=== PATIENT | male | born 1990 | race Caucasian/White ===

== ENCOUNTER 2018-11-10 10:16 | Day surgery (SDC) | payer OTHER ==
[~2018-11-10 10:16] MED LIST: ceFAZolin 2 GM in SODIUM CHLORIDE 0.9% 100ML 100 ML IV SCH
[2018-11-10] MEDS ORDERED: LACTATED RINGERS 1,000 ML IV ONE ×2 (10:41→12:40)
[2018-11-10] MEDS ORDERED: BUPIVACAINE 0.25% PF 30 ML VIAL ONE (10:43)
--- NOTE | 2018-11-10 10:43 | ANESTHESIA ---
Pre-Anesthesia VS, & Labs - Diagnosis Right 5th metacarpal fx - Procedure ORIF right metacarpal Vital Signs: Temp Pulse Resp BP Pulse Ox 36.0 C L 51 L 14 127/78 97 11/10/18 10:22 11/10/18 10:22 11/10/18 10:22 11/10/18 10:22 11/10/18 10:22 Height 5 ft 6 in Weight (kg) 73.6 kg - NPO >8 hours - Lab Results Lab results reviewed: No Home Medications and Allergies Home Medications: Ambulatory Orders No Known Home Medications 11/07/18 Active Medications Cefazolin Sodium 2 gm/ Sodium (Chloride) 100 mls @ 200 mls/hr IV ONCE JUAN Stop: 11/10/18 12:00 No Known Home Medications 11/07/18 Allergies/Adverse Reactions: Allergies Allergy/AdvReac Type Severity Reaction Status Date / Time No Known Drug Allergies Allergy Verified 11/07/18 15:24 Anes History & Medical History - Anesthetic History Anesthesia Complications: reports: No previous complications Family history of Anesthesia Complications: Denies Family history of Malignant Hyperthermia: Denies - Medical History Pulmonary: reports: None Gastrointestinal: reports: None Urinary: reports: None Neuro: reports: None Musculoskeletal: reports: Other Endocrine/Autoimmune: reports: None Blood Disorders: reports: None Skin: reports: None Smoking Status: Former smoker Psychosocial: reports: No issues indicated - Surgical History Eyes Ears Nose Throat (EENT): Tonsil/Adenoidectomy Exam General: Alert Dental: TMJ Mouth Opening: Greater than 4 Fingerbreadths Neck Mobility: Normal Mallampati classification: I Thyromental Distance: greater than 6 cm Respiratory: Lungs clear Cardiovascular: Regular rate Neurological: Normal speech Mental/Cognitive Status: Alert/Oriented X3 Cognitive Status: Within normal limits Plan Anesthesia Type: General Consent for Procedure(s) Verified and Reviewed: Yes Code Status: Attempt Resuscitation ASA classification: 1-Healthy patient Is this case an emergency?: No
[2018-11-10] MEDS ORDERED: oxyCODONE 5 MG TABLET PO PRN (12:29)
[2018-11-10] MEDS ORDERED: ONDANSETRON 4 MG/2 ML VIAL IVP PRN (12:29)
--- NOTE | 2018-11-10 12:35 | OPERATIVE REPORT ---
Operative Report - General Procedure Date: 11/10/18 Planned Procedure: Right fifth metacarpal base fracture closed reduction and percutaneous pinning Pre-Op Diagnosis: Right Fifth metacarpal base fracture dislocation Procedure Performed: Right fifth metacarpal base fracture closed reduction and percutaneous pinning Post Op Diagnosis: Right fifth metacarpal base fracture dislocation - Procedure Note Primary Surgeon: JOVANY ROSALES Secondary Surgeon: LAUREEN DELGADILLO Anesthesia Technique: General LMA Estimated Blood Loss (mL): 5 - Other Other Information/Narrative: Tourniquet Time: 0 minutes at 250mmHg. Specimen(s) Information: None Complication(s): None Condition: Stable to recovery Indications for Surgery: The patient is a 28-year-old right hand dominant male who sustained injury to his right hand on 06 Nov 2018 when he close his hand in a car door. He reported immediate pain and swelling which he treated initially with Motrin and icing. He presented for evaluation at the care clinic on 07 November, where radiographs demonstrated a displaced intra-articular fracture dislocation of the base of the fifth metacarpal. He was referred to orthopedics for further evaluation and management. Xrays demonstrated a displaced intra-articular fracture of the base of the fifth metacarpal, with dorsal and ulnar subluxation of the distal shaft fragment. The patient was counseled on treatment options to attmpted closed reduction and casting versus closed reduction and percutaneous pinning vs open reduction and internal fixation. Risks of surgery were discussed to include bleeding, infection, postoperative stiffness, implant complications, pin tract infections, loss of reduction, need for further procedures procedures, damage to nerves, vessels, tendons, ligaments, bone and cartilage and anesthesia complications to include medication side effects and allergic reactions and even . After a long discussion, he wished to proceed. Findings: Fifth metacarpal base fracture Descriptions of Procedure: The patient was met in the Preoperative Holding Area, at which time preoperative paperwork was confirmed. The right hand was signed. The patient was then brought to Main Operating Room, placed supine on the Operating Room table, at which time pre procedure timeout was conducted to confirm correct patient, correct extremity and correct procedure and also to confirm presence and sterility of all required equipment and to confirm that antibiotics were being administered in the form of 2g of intravenous Ancef. After this was confirmed, general anesthesia was induced. The operative extremity was then prepped and draped over a hand table in the normal sterile fashion after a well-padded tourniquet was placed on the proximal arm but not inflated. A final timeout was conducted to confirm the correct patient, correct extremity and correct procedure and to confirm that antibiotics had been administered within 30 minutes of incision time. A mini C arm was used to visualize the fracture fragments, and the fracture was reduced by applying longitudinal traction followed by a volarly and radially directed force to the shaft of the fifth metacarpal. Reduction was confirmed using fluoroscopy and then a 0.062 inches K wire was driven retrograde from the fifth metacarpal shaft into the hamate. Once this K wire had been placed, reduction was confirmed fluoroscopically, and then a second K wire was placed transversely through the fifth metacarpal shaft into the fourth metacarpal shaft. Again wire placement and reduction was confirmed. Satisfied with the construct, the wires were cut and buried under the skin. Final images were ta rafiq. 10 mL of half percent plain Marcaine were injected around the pins and fracture site. The wound was dressed with xeroform, plain 4x4 gauze, followed by webril. A plaster wrist splint was applied in to the forearm and hand to the level of the MCP joints, followed by a gently compressive Brendon bandage. The patient was then awakened from general anesthesia without complication, brought to the Post Anesthesia Care for further recovery. Postoperative Plan: 1. The patient will be discharged from the Same Day Surgery Unit when discharge criteria are met. 2. The patient will remain in a splint until follow-up in approximately 2 weeks, where he will be converted to a short arm cast. Expected total pin time 6 weeks, followed by pin removal in the OR. 3. Expect total immobilization 6 to 8 weeks, followed by rehabilitation
[2018-11-10] MEDS ORDERED: HYDROmorphone 0.5 MG/0.5 ML SYRINGE ONE (12:50)
[2018-11-10] MEDS ORDERED: oxyCODONE 5 MG TABLET ONE (13:16)
[2018-11-10 13:48] VITALS: BP 114/73
== END 2018-11-10 10:17 | disposition home or self-care (01) ==
LOC: SDS 10:16
PROVIDERS: ATTEND Orthopaedic Surgery
PROC: 0PSP34Z Reposition Right Metacarpal with Internal Fixation Device, Percutaneous Approach (ICD-10-PCS; principal; 2018-11-10 11:30)
DX: S62.316A Displaced fracture of base of fifth metacarpal bone, right hand, initial encounter for closed fracture (principal); F17.290 Nicotine dependence, other tobacco product, uncomplicated
CPT/HCPCS: 26608; A9270; C1713; J1170; J7120

== ENCOUNTER 2018-12-25 11:37 | Day surgery (SDC) | payer OTHER ==
[2018-12-25] MEDS ORDERED: LACTATED RINGERS 1,000 ML IV ONE (11:51)
[2018-12-25] MEDS ORDERED: CEFAZOLIN SODIUM IN 0.9 % NACL 2 GM/100 ML BAG IV ONE (12:10)
--- NOTE | 2018-12-25 12:21 | ANESTHESIA ---
Pre-Anesthesia VS, & Labs - Diagnosis right hand metacarpal fracture - Procedure right hand hardware removal Vital Signs: Temp Pulse Resp BP Pulse Ox 36 C L 59 L 12 110/76 97 12/25/18 11:52 12/25/18 11:52 12/25/18 11:52 12/25/18 11:52 12/25/18 11:52 Height 5 ft 6 in Weight (kg) 70.7 kg - NPO >8 hours Home Medications and Allergies Home Medications: Ambulatory Orders Ibuprofen [Motrin] 600 mg PO Q6H PRN 12/11/18 Ibuprofen [Motrin] 600 mg PO Q6H PRN 12/11/18 Allergies/Adverse Reactions: Allergies Allergy/AdvReac Type Severity Reaction Status Date / Time No Known Drug Allergies Allergy Verified 12/11/18 12:00 Anes History & Medical History - Anesthetic History Anesthesia Complications: reports: No previous complications - Medical History Cardiovascular: reports: None Pulmonary: reports: None Gastrointestinal: reports: None Urinary: reports: None Neuro: reports: None Musculoskeletal: reports: Other Endocrine/Autoimmune: reports: None Blood Disorders: reports: None Skin: reports: None Smoking Status: Former smoker - Surgical History Eyes Ears Nose Throat (EENT): Tonsil/Adenoidectomy Orthopedic: Other Exam General: Alert Dental: WNL Mouth Opening: Greater than 4 Fingerbreadths Neck Mobility: Normal Mallampati classification: II Respiratory: Lungs clear Cardiovascular: Regular rate, Normal S1, Normal S2 Mental/Cognitive Status: Alert/Oriented X3 Plan Anesthesia Type: General, MAC Consent for Procedure(s) Verified and Reviewed: Yes Code Status: Attempt Resuscitation ASA classification: 1-Healthy patient Is this case an emergency?: No
[2018-12-25] MEDS ORDERED: BUPIVACAINE 0.25% PF 30 ML VIAL ONE (12:45)
[2018-12-25] MEDS ORDERED: MIDAZOLAM 2 MG/2 ML VIAL IVP ONE (14:00)
[2018-12-25] MEDS ORDERED: PROPOFOL 200 MG/20 ML VIAL IVP ONE (14:00)
[2018-12-25] MEDS ORDERED: LIDOCAINE-MPF 2% 5 ML VIAL IM ONE (14:00)
[2018-12-25] MEDS ORDERED: fentaNYL 100 MCG/2 ML VIAL IVP ONE (14:00)
[2018-12-25] MEDS ORDERED: oxyCODONE 5 MG TABLET PO PRN (14:18)
[2018-12-25] MEDS ORDERED: ONDANSETRON 4 MG/2 ML VIAL IVP PRN (14:18)
[2018-12-25 14:34] VITALS: BP 111/80
--- NOTE | 2018-12-25 14:41 | OPERATIVE REPORT ---
Operative Report - General Procedure Date: 12/25/18 Planned Procedure: Right hand pin removal Pre-Op Diagnosis: Right hand retained hardware Procedure Performed: Right hand pin removal Post Op Diagnosis: Right hand retained hardware - Procedure Note Primary Surgeon: JOVANY ROSALES Anesthesia Technique: Local, MAC Estimated Blood Loss (mL): 1 - Other Other Information/Narrative: Tourniquet Time: 19 minutes at 250mmHg. Specimen(s) Information: None Complication(s): None Condition: Stable to recovery Indications for Surgery: The patient is a 28-year-old [id number] male who is approximately 6.5 weeks status post closed reduction percutaneous pinning of a right fifth me tacarpal base fracture on 10 Nov 2018. Pins were buried at the index surgery with planned removal approximately 6 weeks later. He has had no pain related complications and the skin has healed well. He was casted for approximately 4 weeks following the index surgery, followed by conversion to an Orthoplast splint. Risks of surgery were discussed to include bleeding, infection, postoperative stiffness, implant complications, need for further procedures procedures, damage to nerves, vessels, tendons, ligaments, bone and cartilage and anesthesia complications to include medication side effects and allergic reactions, blood clot, stroke and even . After discussion, he wished to proceed. Findings: 2 buried K wires removed, removal of maintenance of reduction verified on fluoroscopy. Descriptions of Procedure: The patient was met in the Preoperative Holding Area, at which time preoperative paperwork was confirmed. The right hand was signed. The patient was then brought to Main Operating Room, placed supine on the Operating Room table. Monitored anesthesia care was induced. The operative extremity was then prepped and draped over a hand table in the normal sterile fashion after a well-padded tourniquet was placed on the proximal arm. A surgical timeout was conducted to confirm the correct patient, correct extremity and correct procedure, the availability of mini C arm fluoroscopy and required equipment and to confirm that antibiotics consisting of 2 g cefazolin IV had been administered within 30 minutes of incision time. Following the timeout, local anesthesia was achieved using 8 mL's of quarter percent Marcaine plain. The operative extremity was then exsanguinated with an Esmarch bandage and tourniquet inflated to 250mmHg. The ulnar most pin was identified by digital palpation, and approximately 8 mm longitudinal incision was made through the skin with a 15 blade. Hemostats and a [place] elevator were then used to gently spread the surrounding tissue until the pin was identified and isolated. The pin was grasped with a set of needle drivers and gently turned and extracted in its entirety. The process was then repeated for the dorsal pin, which was also removed in its entirety without difficulty. Fluoroscopy was used to confirm completeness of implant removal as well as to assess for maintenance of reduction. The wounds were then irrigated, and closed with 4-0 nylon with a single horizontal mattress stitch in each incision. An additional 8 mL's of quarter percent Marcaine plain was injected in the isabella-incisional tissues down to the periosteum. Xeroform gauze was placed over the incisions, followed by 4 x 4 gauze and web roll. The tourniquet was let down and an ulnar gutter splint to the level of the metacarpal heads was placed followed by a gently compressive Brendon bandage. Anesthesia was reversed without complication, and the patient was brought to the Post Anesthesia Care for further recovery. Postoperative Plan: 1. The patient will be discharged from the Same Day Surgery Unit when discharge criteria are met. 2. The patient will remain in the splint/dressing for approximately 3 days, he will take it down at home, and resume wearing the orthoplast splint that was previously fabricated. He can wash the incisions once the splint is down, but not submerge the incisions for 3 to 4 weeks after surgery. He should place a Band-Aid over the incisions after he washes his hand, prior to donning the Orthoplast splint. 3. Expect 2 more weeks of splint wear followed by hand therapy.. 4. Discharge precautions were provided in both verbal and written form to the patient.
== END 2018-12-25 11:38 | disposition home or self-care (01) ==
LOC: SDS 11:37
PROVIDERS: ATTEND Orthopaedic Surgery
PROC: 0RPS04Z Removal of Internal Fixation Device from Right Carpometacarpal Joint, Open Approach (ICD-10-PCS; principal; 2018-12-25 13:00)
DX: Z47.2 Encounter for removal of internal fixation device (principal); Z87.891 Personal history of nicotine dependence
CPT/HCPCS: 20670; J0690; J7120